=== PATIENT | female | born 1945 | race Caucasian/White ===

== ENCOUNTER → 2016-12-11 | Outpatient (CLI) | payer OTHER ==
[2016-12-11 17:28] LABS: BUN/Creatinine Ratio 24.4; Calcium 10.4 mg/dL (8.5-10.1); Potassium 4.5 mmol/L (3.5-5.1)
== END | disposition home or self-care (01) ==
LOC: LAB 08:03
PROVIDERS: ATTEND Internal Medicine Cardiovascular Disease
DX: I10 Essential (primary) hypertension (principal)
CPT/HCPCS: 36415; 80048

== ENCOUNTER → 2017-02-06 | Outpatient (CLI) | payer OTHER ==
[2017-02-06 12:39] LABS: BUN/Creatinine Ratio 30.6; Calcium 9.6 mg/dL (8.5-10.1); Potassium 4.5 mmol/L (3.5-5.1)
== END | disposition home or self-care (01) ==
LOC: LAB 08:57
PROVIDERS: ATTEND Internal Medicine Cardiovascular Disease
DX: I10 Essential (primary) hypertension (principal)
CPT/HCPCS: 36415; 80048

== ENCOUNTER → 2017-05-05 | Outpatient (CLI) | payer OTHER ==
[2017-05-05 12:35] LABS: BUN/Creatinine Ratio 20.9; Calcium 9.4 mg/dL (8.5-10.1); Potassium 4.2 mmol/L (3.5-5.1)
== END | disposition home or self-care (01) ==
LOC: LAB 08:52
PROVIDERS: ATTEND Internal Medicine Cardiovascular Disease
DX: I10 Essential (primary) hypertension (principal)
CPT/HCPCS: 36415; 80048

== ENCOUNTER 2017-05-27 05:52 | Emergency (ER) | payer OTHER ==
[~2017-05-27] VITALS: Ht 175.3 cm; Wt 88.5 kg
[2017-05-27] MEDS ORDERED: KETOROLAC TROMETH 60MG/2ML VIAL IM ONE (07:30)
[2017-05-27 10:45] VITALS: BP 77/42
[2017-05-27 10:53] LABS: Basophils # (auto) 0.1 uL; Basophils % (auto) 0.6 % (0.0-2.0); CONDITION Y; Eosinophils # (auto) 0 uL; Eosinophils % (auto) 0.3 % (0.0-7.0); Hematocrit 42.8 % (36.0-46.0); Hemoglobin 14.1 g/dL (12.2-16.2); Lymphocytes # (auto) 1.3 uL; Mean Corpuscular Hemoglobin 27.1 pg (28.0-32.0); Mean Platelet Volume 7.8 fL (7.4-10.4); Monocytes # (auto) 0.7 uL; Monocytes % (auto) 5.1 % (0.0-12.0); Neutrophils # (auto) 11.2 uL; Platelet Count (auto) 297 10^3/uL (140-450); Red Cell Distribution Width 14.6 % (11.6-16.0); White Blood Cell 13.3 10^3/uL (4.4-10.8)
[2017-05-27 11:12] LABS: BUN/Creatinine Ratio 16.1; Bilirubin, Total 0.8 mg/dL (0.2-1.0); Calcium 10.9 mg/dL (8.5-10.1); Potassium 4.1 mmol/L (3.5-5.1); Total Protein 8.4 g/dL (6.4-8.2)
== END 2017-05-27 12:33 | disposition home or self-care (01) ==
LOC: ER 05:52
DX: S32.039A Unspecified fracture of third lumbar vertebra, initial encounter for closed fracture (principal); I10 Essential (primary) hypertension; E78.00 Pure hypercholesterolemia, unspecified; Z88.6 Allergy status to analgesic agent; E78.5 Hyperlipidemia, unspecified; W01.0XXA Fall on same level from slipping, tripping and stumbling without subsequent striking against object, initial encounter; Y93.89 Activity, other specified; Y92.098 Other place in other non-institutional residence as the place of occurrence of the external cause; Y99.8 Other external cause status
CPT/HCPCS: 36415; 72110; 72131; 72192; 80053; 85025; 96372; 99285; J1885

== ENCOUNTER → 2017-06-11 | Outpatient (CLI) | payer OTHER | END | disposition home or self-care (01) | LOC: Rad HDHVI 08:50 | PROVIDERS: ATTEND Internal Medicine Cardiovascular Disease | DX: M85.9 Disorder of bone density and structure, unspecified (principal) | CPT/HCPCS: 77078 ==

== ENCOUNTER → 2018-02-05 | Outpatient (CLI) | payer OTHER ==
[2018-02-05 12:11] LABS: Urine Blood Negative /uL (Negative); Urine Specific Gravity 1.014 (1.001-1.035)
[2018-02-05 12:17] LABS: Basophils # (auto) 0.1 uL; Basophils % (auto) 1.1 % (0.0-2.0); Eosinophils # (auto) 0.1 uL; Eosinophils % (auto) 2.3 % (0.0-7.0); Monocytes # (auto) 0.4 uL
[2018-02-05 12:21] LABS: Hematocrit 40.6 % (36.0-46.0); Hemoglobin 13.1 g/dL (12.2-16.2); Lymphocytes # (auto) 1.4 uL; Lymphocytes % (auto) 23.2 % (10.0-50.0); Mean Corpuscular Hgb Conc. 32.4 g/dL (32.0-36.0); Mean Corpuscular Volume 83.5 fL (80.0-100.0); Monocytes % (auto) 6.4 % (0.0-12.0); Neutrophils # (auto) 4.2 uL; Nucleated Red Blood Cells % 0.5 %; Platelet Count (auto) 199 10^3/uL (140-450); Red Blood Cells 4.86 10^6/uL (4.0-5.20); Red Cell Distribution Width 14.3 % (11.8-14.3); White Blood Cell 6.2 10^3/uL (4.4-10.8)
[2018-02-05 12:24] LABS: Free T4 (Free Thyroxine) 1.46 ng/dL (0.89-1.76)
[2018-02-05 13:25] LABS: BUN/Creatinine Ratio 20.7; Potassium 4.3 mmol/L (3.5-5.1)
== END | disposition home or self-care (01) ==
LOC: LAB 08:25
PROVIDERS: ATTEND Internal Medicine Cardiovascular Disease
DX: E78.00 Pure hypercholesterolemia, unspecified (principal); D64.9 Anemia, unspecified; E11.9 Type 2 diabetes mellitus without complications; I10 Essential (primary) hypertension; E03.9 Hypothyroidism, unspecified; E55.9 Vitamin D deficiency, unspecified; N39.0 Urinary tract infection, site not specified; D51.9 Vitamin B12 deficiency anemia, unspecified
CPT/HCPCS: 36415; 80053; 80061; 81003; 82306; 82607; 83036; 84439; 84443; 85025

== ENCOUNTER → 2018-08-31 | Outpatient (CLI) | payer OTHER ==
[2018-08-31 12:11] LABS: BUN/Creatinine Ratio 18.1; Calcium 9.7 mg/dL (8.5-10.1); Potassium 4.4 mmol/L (3.5-5.1)
== END | disposition home or self-care (01) ==
LOC: LAB 08:50
PROVIDERS: ATTEND Internal Medicine
DX: I10 Essential (primary) hypertension (principal)
CPT/HCPCS: 36415; 80048

== ENCOUNTER → 2019-04-12 | Outpatient (CLI) | payer OTHER ==
[2019-04-12 12:50] LABS: Basophils # (auto) 0.1 uL; Basophils % (auto) 1.2 % (0.0-2.0); Eosinophils # (auto) 0.1 uL; Eosinophils % (auto) 1.9 % (0.0-7.0); Hemoglobin 13.3 g/dL (12.2-16.2); Lymphocytes # (auto) 1.4 uL; Lymphocytes % (auto) 22.6 % (10.0-50.0); Mean Corpuscular Hemoglobin 27.1 pg (28.0-32.0); Mean Corpuscular Hgb Conc. 32.5 g/dL (32.0-36.0); Mean Corpuscular Volume 83.4 fL (80.0-100.0); Monocytes # (auto) 0.4 uL; Neutrophils # (auto) 4.3 uL; Neutrophils % (auto) 68.3 % (37.0-80.0); Nucleated Red Blood Cells % 0.1 %; Platelet Count (auto) 203 10^3/uL (140-450); Red Blood Cells 4.91 10^6/uL (4.0-5.20); Red Cell Distribution Width 14.8 % (11.8-14.3); White Blood Cell 6.3 10^3/uL (4.4-10.8)
[2019-04-12 12:52] LABS: Urine Blood Negative /uL (Negative)
[2019-04-12 13:02] LABS: Potassium 3.9 mmol/L (3.5-5.1)
[2019-04-12 13:07] LABS: Free T4 (Free Thyroxine) 1.19 ng/dL (0.89-1.76)
[2019-04-12 13:14] LABS: Albumin 3.8 g/dL (3.4-5.0); BUN/Creatinine Ratio 17.9; Bilirubin, Total 0.8 mg/dL (0.2-1.0); Calcium 9.5 mg/dL (8.5-10.1); Total Protein 7.7 g/dL (6.4-8.2)
== END | disposition home or self-care (01) ==
LOC: LAB 08:33
PROVIDERS: ATTEND Internal Medicine
DX: E55.9 Vitamin D deficiency, unspecified (principal); E03.9 Hypothyroidism, unspecified; D51.9 Vitamin B12 deficiency anemia, unspecified; N39.0 Urinary tract infection, site not specified; Z79.899 Other long term (current) drug therapy
CPT/HCPCS: 36415; 80053; 80061; 81003; 82306; 82607; 83036; 84439; 84443; 85025

== ENCOUNTER → 2020-01-11 | Outpatient (CLI) | payer OTHER ==
[2020-01-11 11:28] LABS: Urine Blood Negative /uL (Negative); Urine Specific Gravity 1.011 (1.001-1.035)
[2020-01-11 11:29] LABS: Basophils # (auto) 0.1 uL; Eosinophils # (auto) 0.2 uL; Hematocrit 39.3 % (36.0-46.0); Hemoglobin 12.9 g/dL (12.2-16.2); Lymphocytes # (auto) 1.3 uL; Lymphocytes % (auto) 16.6 % (10.0-50.0); Mean Corpuscular Hemoglobin 27.3 pg (28.0-32.0); Mean Corpuscular Hgb Conc. 32.8 g/dL (32.0-36.0); Mean Corpuscular Volume 83.3 fL (80.0-100.0); Monocytes # (auto) 0.4 uL; Monocytes % (auto) 5.1 % (0.0-12.0); Neutrophils # (auto) 5.7 uL; Neutrophils % (auto) 75.3 % (37.0-80.0); Nucleated Red Blood Cells % 0.1 %; Platelet Count (auto) 215 10^3/uL (140-450); Red Blood Cells 4.72 10^6/uL (4.0-5.20); Red Cell Distribution Width 14.4 % (11.8-14.3); White Blood Cell 7.5 10^3/uL (4.4-10.8)
[2020-01-11 11:45] LABS: Potassium 4.3 mmol/L (3.5-5.1)
[2020-01-11 12:00] LABS: Albumin 3.9 g/dL (3.4-5.0); BUN/Creatinine Ratio 25.8; Bilirubin, Total 0.8 mg/dL (0.2-1.0); Calcium 9.6 mg/dL (8.5-10.1); Total Protein 7.9 g/dL (6.4-8.2)
[2020-01-11 12:22] LABS: Free T4 (Free Thyroxine) 1.09 ng/dL (0.89-1.76)
== END | disposition home or self-care (01) ==
LOC: LAB 09:43
PROVIDERS: ATTEND Internal Medicine
DX: E03.9 Hypothyroidism, unspecified (principal); K90.9 Intestinal malabsorption, unspecified; N39.0 Urinary tract infection, site not specified; D51.9 Vitamin B12 deficiency anemia, unspecified; Z79.899 Other long term (current) drug therapy
CPT/HCPCS: 36415; 80053; 80061; 81003; 82306; 82607; 83036; 84439; 84443; 85025

== ENCOUNTER → 2021-01-30 | Outpatient (CLI) | payer OTHER ==
[2021-01-30 11:38] LABS: Basophils # (auto) 0 10 ^3/uL (0-0.2); Basophils % (auto) 0.6 % (0.0-2.0); Eosinophils # (auto) 0.3 10 ^3/uL (0-0.8); Eosinophils % (auto) 4.1 % (0.0-7.0); Hematocrit 39.8 % (36.0-46.0); Hemoglobin 13.4 g/dL (12.2-16.2); Lymphocytes # (auto) 1.3 10 ^3/uL (0.4-5.4); Lymphocytes % (auto) 18.8 % (10.0-50.0); Mean Corpuscular Hemoglobin 27.4 pg (28.0-32.0); Mean Corpuscular Hgb Conc. 33.8 g/dL (32.0-36.0); Mean Corpuscular Volume 81.2 fL (80.0-100.0); Monocytes # (auto) 0.5 10 ^3/uL (0-1.3); Monocytes % (auto) 7.4 % (0.0-12.0); Neutrophils # (auto) 4.8 10 ^3/uL (1.6-8.6); Neutrophils % (auto) 69.1 % (37.0-80.0); Nucleated Red Blood Cells % 0.1 %; Platelet Count (auto) 183 10^3/uL (140-450); Red Cell Distribution Width 14.4 % (11.8-14.3)
[2021-01-30 11:53] LABS: Albumin 3.8 g/dL (3.4-5.0); Potassium 4.2 mmol/L (3.5-5.1)
[2021-01-30 11:55] LABS: Urine Blood Negative /uL (Negative); Urine Specific Gravity 1.009 (1.001-1.035)
[2021-01-30 12:02] LABS: BUN/Creatinine Ratio 22.8; Bilirubin, Total 0.8 mg/dL (0.2-1.0); Calcium 9.7 mg/dL (8.5-10.1); Total Protein 7.7 g/dL (6.4-8.2)
[2021-01-30 12:04] LABS: Free T4 (Free Thyroxine) 1.07 ng/dL (0.89-1.76)
== END | disposition home or self-care (01) ==
LOC: LAB 10:58
PROVIDERS: ATTEND Internal Medicine
DX: D51.3 Other dietary vitamin B12 deficiency anemia (principal); I10 Essential (primary) hypertension; E11.9 Type 2 diabetes mellitus without complications; E55.9 Vitamin D deficiency, unspecified; D64.9 Anemia, unspecified; R00.2 Palpitations; R53.1 Weakness; R30.0 Dysuria
CPT/HCPCS: 36415; 80053; 80061; 81003; 82306; 82607; 83036; 84439; 84443; 85025

== ENCOUNTER 2021-02-28 07:37 | Emergency (ER) | payer OTHER ==
[~2021-02-28] VITALS: Ht 175.3 cm; Wt 81.6 kg
[2021-02-28] MEDS ORDERED: SODIUM CHLORIDE 0.9% 1,000 ML IV ONE (08:00)
[2021-02-28] MEDS ORDERED: ALUM & MAG HYDROX-SIMETH LIQ(MAALOX) 30 ML PO ONE (08:30)
[2021-02-28] MEDS ORDERED: SODIUM CHLORIDE 0.9% 1,000 ML IVB ONE (08:30)
[2021-02-28] MEDS ORDERED: FAMOTIDINE 20 MG TAB PO ONE (08:30)
[2021-02-28] MEDS ORDERED: DONNATAL 5ml ORAL Elix (BELLADONNA ALK-PHENOBARB) PO ONE (08:30)
[2021-02-28] MEDS ORDERED: PROMETHAZINE HCL 25 MG/ML 1ML IV ONE (08:30)
[2021-02-28 08:46] LABS: Basophils # (auto) 0.1 10 ^3/uL (0-0.2); Basophils % (auto) 0.7 % (0.0-2.0); Eosinophils # (auto) 0.2 10 ^3/uL (0-0.8); Hematocrit 38.1 % (36.0-46.0); Hemoglobin 12.7 g/dL (12.2-16.2); Lymphocytes # (auto) 1.3 10 ^3/uL (0.4-5.4); Lymphocytes % (auto) 11.4 % (10.0-50.0); Mean Corpuscular Hemoglobin 27.2 pg (28.0-32.0); Mean Corpuscular Hgb Conc. 33.4 g/dL (32.0-36.0); Mean Corpuscular Volume 81.5 fL (80.0-100.0); Monocytes # (auto) 0.8 10 ^3/uL (0-1.3); Monocytes % (auto) 6.9 % (0.0-12.0); Neutrophils # (auto) 9.1 10 ^3/uL (1.6-8.6); Nucleated Red Blood Cells % 0.1 %; Platelet Count (auto) 219 10^3/uL (140-450); Red Blood Cells 4.67 10^6/uL (4.0-5.20); Red Cell Distribution Width 14.5 % (11.8-14.3); White Blood Cell 11.5 10^3/uL (4.4-10.8)
[2021-02-28 08:54] LABS: Urine Bacteria FEW /hpf (None Seen); Urine Blood Negative /uL (Negative); Urine Hyaline Cast MOD /lpf (0 - 2); Urine Mucus FEW (None Seen); Urine Specific Gravity 1.022 (1.001-1.035); Urine WBC 2 /hpf (0 - 5)
[2021-02-28 09:02] LABS: INR 1.06 (0.9-1.15); Partial Thromboplastin Time 26.1 sec (23.0-31.2)
[2021-02-28 09:08] LABS: Albumin 3.8 g/dL (3.4-5.0); Anion Gap 8 (5-15); Blood Urea Nitrogen 26 mg/dL (7-18); Calcium 8.7 mg/dL (8.5-10.1); Carbon Dioxide 25 mmol/L (21-32); Chloride 100 mmol/L (98-107); Glucose 142 mg/dL (74-106); Magnesium 3.1 mg/dL (1.6-2.6); Potassium 3.9 mmol/L (3.5-5.1); Sodium 133 mmol/L (136-145)
[2021-02-28 09:13] LABS: Alanine Aminotransferase 22 U/L (13-56); Alkaline Phosphatase 94 U/L (45-117); Aspartate Aminotransferase 22 U/L (15-37); BUN/Creatinine Ratio 21.7; Bilirubin, Total 1.1 mg/dL (0.2-1.0); GFR African American 56 mL/min; GFR Non-African American 47 mL/min; Total Protein 7.4 g/dL (6.4-8.2)
[2021-02-28 10:03] VITALS: BP 119/56
== END 2021-02-28 11:47 | disposition home or self-care (01) ==
LOC: ER 07:37
DX: K52.9 Noninfective gastroenteritis and colitis, unspecified (principal); N39.0 Urinary tract infection, site not specified; I12.9 Hypertensive chronic kidney disease with stage 1 through stage 4 chronic kidney disease, or unspecified chronic kidney disease; N18.30 Chronic kidney disease, stage 3 unspecified; E78.5 Hyperlipidemia, unspecified; Z90.49 Acquired absence of other specified parts of digestive tract; Z88.5 Allergy status to narcotic agent
CPT/HCPCS: 36415; 71045; 80053; 81001; 83690; 83735; 84443; 84484; 85025; 85610; 85730; 93005; 96361; 96374; 99285; J2550; J7030; 96375

== ENCOUNTER → 2022-01-30 | Outpatient (CLI) | payer OTHER ==
[2022-01-30 11:47] LABS: Basophils # (auto) 0.1 10 ^3/uL (0-0.2); Basophils % (auto) 1.3 % (0.0-2.0); Eosinophils # (auto) 0.1 10 ^3/uL (0-0.8); Eosinophils % (auto) 2.2 % (0.0-7.0); Hematocrit 40.3 % (36.0-46.0); Hemoglobin 13.4 g/dL (12.2-16.2); Lymphocytes # (auto) 1.3 10 ^3/uL (0.4-5.4); Lymphocytes % (auto) 21.3 % (10.0-50.0); Mean Corpuscular Hgb Conc. 33.1 g/dL (32.0-36.0); Mean Corpuscular Volume 81.4 fL (80.0-100.0); Monocytes # (auto) 0.5 10 ^3/uL (0-1.3); Monocytes % (auto) 8.2 % (0.0-12.0); Neutrophils # (auto) 4.2 10 ^3/uL (1.6-8.6); Nucleated Red Blood Cells % 0.1 %; Red Blood Cells 4.95 10^6/uL (4.0-5.20); Red Cell Distribution Width 14.9 % (11.8-14.3); White Blood Cell 6.3 10^3/uL (4.4-10.8)
[2022-01-30 11:52] LABS: Urine Blood Negative /uL (Negative); Urine Specific Gravity 1.012 (1.001-1.035)
[2022-01-30 11:57] LABS: Free T4 (Free Thyroxine) 1.2 ng/dL (0.89-1.76)
[2022-01-30 12:05] LABS: Potassium 4.1 mmol/L (3.5-5.1)
[2022-01-30 12:20] LABS: Albumin 3.9 g/dL (3.4-5.0); Calcium 9.4 mg/dL (8.5-10.1); Total Protein 7.7 g/dL (6.4-8.2)
== END | disposition home or self-care (01) ==
LOC: LAB 08:01
PROVIDERS: ATTEND Internal Medicine
DX: E11.9 Type 2 diabetes mellitus without complications (principal); D51.3 Other dietary vitamin B12 deficiency anemia; D64.9 Anemia, unspecified; E55.9 Vitamin D deficiency, unspecified; I10 Essential (primary) hypertension; R00.2 Palpitations; R53.1 Weakness; R30.0 Dysuria
CPT/HCPCS: 36415; 80053; 80061; 81003; 82306; 82607; 83036; 84439; 84443; 85025

== ENCOUNTER → 2023-04-09 | Outpatient (CLI) | payer OTHER | END | disposition home or self-care (01) | LOC: Rad HDHVI 08:04 | PROVIDERS: ATTEND Internal Medicine Cardiovascular Disease | DX: I10 Essential (primary) hypertension (principal); E78.5 Hyperlipidemia, unspecified | CPT/HCPCS: 93306 ==

== ENCOUNTER → 2023-04-09 | Outpatient (CLI) | payer OTHER ==
[2023-04-09 09:18] LABS: Basophils # (auto) 0.1 10 ^3/uL (0-0.2); Basophils % (auto) 1.3 % (0.0-2.0); Eosinophils # (auto) 0.1 10 ^3/uL (0-0.8); Eosinophils % (auto) 1.1 % (0.0-7.0); Hematocrit 39.6 % (36.0-46.0); Hemoglobin 13.1 g/dL (12.2-16.2); Lymphocytes # (auto) 1.4 10 ^3/uL (0.4-5.4); Lymphocytes % (auto) 21.9 % (10.0-50.0); Mean Corpuscular Hemoglobin 26.5 pg (28.0-32.0); Mean Corpuscular Volume 80.3 fL (80.0-100.0); Monocytes # (auto) 0.4 10 ^3/uL (0-1.3); Monocytes % (auto) 6.8 % (0.0-12.0); Neutrophils # (auto) 4.3 10 ^3/uL (1.6-8.6); Neutrophils % (auto) 68.9 % (37.0-80.0); Nucleated Red Blood Cells % 0.2 %; Red Blood Cells 4.94 10^6/uL (4.0-5.20); Red Cell Distribution Width 13.9 % (11.8-14.3); White Blood Cell 6.3 10^3/uL (4.4-10.8)
[2023-04-09 09:54] LABS: Potassium 3.8 mmol/L (3.5-5.1)
[2023-04-09 10:03] LABS: BUN/Creatinine Ratio 15.1 (10.0-20.0); Bilirubin, Direct 0.2 mg/dL (0-0.2); Bilirubin, Total 0.9 mg/dL (0.2-1.0); Calcium 9.7 mg/dL (8.5-10.1); Total Protein 7.6 g/dL (6.4-8.2)
== END | disposition home or self-care (01) ==
LOC: LAB 08:48
PROVIDERS: ATTEND Internal Medicine Cardiovascular Disease
DX: I10 Essential (primary) hypertension (principal); D51.3 Other dietary vitamin B12 deficiency anemia; D64.9 Anemia, unspecified; E11.9 Type 2 diabetes mellitus without complications; E55.9 Vitamin D deficiency, unspecified; R00.2 Palpitations; R53.1 Weakness; R30.0 Dysuria
CPT/HCPCS: 36415; 80048; 80061; 80076; 82306; 83036; 84443; 85025; 87086

== ENCOUNTER → 2023-04-25 | Outpatient (CLI) | payer OTHER ==
[~2023-04-25] VITALS: Ht 172.7 cm; Wt 90.7 kg
[~2023-04-25] MED LIST: ADENOSINE 76 MG in GIVE UN-DILUTED 0 ML IV ONE; ADENOSINE 90 MG/30 ML INJ IV ONE
== END | disposition home or self-care (01) ==
LOC: Rad HDHVI 08:40
PROVIDERS: ATTEND Internal Medicine Cardiovascular Disease
DX: I10 Essential (primary) hypertension (principal); E78.5 Hyperlipidemia, unspecified
CPT/HCPCS: 78452; 93005; 96374; 96375; A9500; J0153

== ENCOUNTER → 2024-01-22 | Outpatient (CLI) | payer OTHER ==
[2024-01-22 07:28] LABS: Albumin 4.5 g/dL (3.2-4.8); Alkaline Phosphatase 117 U/L (46-116); Anion Gap 7 (5-15); Aspartate Aminotransferase 16 U/L (13-40); BUN/Creatinine Ratio 18.4 (10.0-20.0); Bilirubin, Total 0.9 mg/dL (0.2-1.0); Blood Urea Nitrogen 19 mg/dL (9-23); Calcium 9.8 mg/dL (8.5-10.1); Carbon Dioxide 27 mmol/L (20-30); Chloride 107 mmol/L (98-107); Cholesterol 160 mg/dL (< 200); Glucose 108 mg/dL (74-106); HDL Cholesterol 50 mg/dL (40-59); LDL Cholesterol 90 mg/dL (< 100); Potassium 4.3 mmol/L (3.5-5.1); Sodium 141 mmol/L (136-145); Triglycerides 87 mg/dL (< 150)
[2024-01-22 07:46] LABS: Alanine Aminotransferase < 9 U/L (7-40)
== END | disposition home or self-care (01) ==
LOC: LAB 06:52
PROVIDERS: ATTEND Family Medicine
DX: I10 Essential (primary) hypertension (principal); E78.5 Hyperlipidemia, unspecified; E11.9 Type 2 diabetes mellitus without complications
CPT/HCPCS: 36415; 80053; 80061; 83036

== ENCOUNTER → 2024-08-17 | Outpatient (CLI) | payer OTHER ==
[2024-08-17 07:05] LABS: Urine Bacteria None Seen /hpf (None Seen); Urine WBC None Seen /hpf (0 - 5)
[2024-08-17 07:17] LABS: Basophils # (auto) 0.1 10 ^3/uL (0-0.2); Eosinophils # (auto) 0.2 10 ^3/uL (0-0.8); Eosinophils % (auto) 2.5 % (0.0-7.0); Hematocrit 38.4 % (36.0-46.0); Lymphocytes # (auto) 1.4 10 ^3/uL (0.4-5.4); Lymphocytes % (auto) 22.2 % (10.0-50.0); Mean Corpuscular Hemoglobin 27.7 pg (28.0-32.0); Mean Corpuscular Hgb Conc. 33.8 g/dL (32.0-36.0); Mean Corpuscular Volume 82.1 fL (80.0-100.0); Monocytes # (auto) 0.5 10 ^3/uL (0-1.3); Monocytes % (auto) 8.2 % (0.0-12.0); Neutrophils # (auto) 4.2 10 ^3/uL (1.6-8.6); Neutrophils % (auto) 66.1 % (37.0-80.0); Nucleated Red Blood Cells % 0.1 %; Platelet Count (auto) 204 10^3/uL (140-450); Red Blood Cells 4.67 10^6/uL (4.0-5.20); Red Cell Distribution Width 14.1 % (11.8-14.3); White Blood Cell 6.4 10^3/uL (4.4-10.8)
[2024-08-17 07:44] LABS: Urine Blood Negative /uL (Negative); Urine Clarity Clear (Clear); Urine Color Colorless (Yellow); Urine Protein, UAD Negative (Negative); Urine Specific Gravity 1.004 (1.001-1.035); Urine Urobilinogen Normal (Negative)
[2024-08-17 09:21] LABS: Alanine Aminotransferase 16 U/L (7-40); Alkaline Phosphatase 106 U/L (46-116); Anion Gap 7 (5-15); Calcium 9.9 mg/dL (8.7-10.4); Carbon Dioxide 24 mmol/L (20-30); Chloride 104 mmol/L (98-107); Sodium 135 mmol/L (136-145)
[2024-08-17 09:23] LABS: BUN/Creatinine Ratio 19.3 (10.0-20.0); Blood Urea Nitrogen 22 mg/dL (9-23); Glucose 116 mg/dL (74-106)
[2024-08-17 09:24] LABS: Albumin 4.4 g/dL (3.2-4.8)
[2024-08-17 09:25] LABS: Aspartate Aminotransferase 13 U/L (13-40); Bilirubin, Total 0.9 mg/dL (0.2-1.0); Total Protein 7.1 g/dL (5.7-8.2)
[2024-08-17 13:02] LABS: Triglycerides 75 mg/dL (< 150)
[2024-08-17 13:03] LABS: Cholesterol 158 mg/dL (< 200); HDL Cholesterol 58 mg/dL (40-59); LDL Cholesterol 80 mg/dL (< 100)
[2024-08-18 12:07] LABS: Chlamydia Trachomatis, NAA Negative (Negative); Neisseria gonorrhoeae, NAA Negative (Negative)
== END | disposition home or self-care (01) ==
LOC: LAB 06:49
PROVIDERS: ATTEND Nurse Practitioner Family
DX: Z12.11 Encounter for screening for malignant neoplasm of colon (principal); Z11.3 Encounter for screening for infections with a predominantly sexual mode of transmission; I10 Essential (primary) hypertension; Z00.01 Encounter for general adult medical examination with abnormal findings; Z13.89 Encounter for screening for other disorder; Z79.899 Other long term (current) drug therapy
CPT/HCPCS: 36415; 80053; 80061; 81001; 82043; 83036; 84443; 85025; 87086

== ENCOUNTER → 2025-02-08 | Outpatient (CLI) | payer OTHER ==
[2025-02-08 07:41] LABS: Alanine Aminotransferase 18 U/L (7-40); Albumin 4.7 g/dL (3.2-4.8); Alkaline Phosphatase 106 U/L (46-116); Anion Gap 10 (5-15); Aspartate Aminotransferase 17 U/L (13-40); BUN/Creatinine Ratio 13.1 (10.0-20.0); Blood Urea Nitrogen 14 mg/dL (9-23); Calcium 10.4 mg/dL (8.7-10.4); Carbon Dioxide 26 mmol/L (20-31); Chloride 102 mmol/L (98-107); Cholesterol 170 mg/dL (< 200); Glucose 118 mg/dL (74-106); HDL Cholesterol 57 mg/dL (40-59); LDL Cholesterol 93 mg/dL (< 100); Sodium 138 mmol/L (136-145); Total Protein 7.4 g/dL (5.7-8.2); Triglycerides 108 mg/dL (< 150)
[2025-02-08 07:42] LABS: Bilirubin, Total 1.3 mg/dL (0.2-1.0)
== END | disposition home or self-care (01) ==
LOC: LAB 06:44
PROVIDERS: ATTEND Family Medicine
DX: I12.9 Hypertensive chronic kidney disease with stage 1 through stage 4 chronic kidney disease, or unspecified chronic kidney disease (principal); N18.31 Chronic kidney disease, stage 3a; E78.5 Hyperlipidemia, unspecified; R79.9 Abnormal finding of blood chemistry, unspecified; E66.9 Obesity, unspecified
CPT/HCPCS: 36415; 80053; 80061; 82043; 83036